=== PATIENT | female | born 1955 | race Caucasian/White ===

== ENCOUNTER 2017-01-07 20:51 | Emergency (ER) | payer BC ==
[2017-01-07 20:57] VITALS: BP 109/69
--- NOTE | 2017-01-19 19:37 | UC ---
Lower Extremity/Ankle HPI - HPI Summary HPI Summary: believes she stepped on a straight pin 2-3 weeks ago and the FB is still in her foot - History of Current Complaint Chief Complaint: YANIRAkin Stated Complaint: METAL IN FOOT Time Seen by Provider: 01/07/17 21:31 Hx Obtained From: Patient ?: No Onset/Duration: Sudden Onset, Lasting Weeks - 2, Still Present Severity Initially: Moderate Severity Currently: Moderate Pain Intensity: 8 Pain Scale Used: 0-10 Numeric Aggravating Factor(s): Standing, Ambulation Alleviating Factor(s): Rest, Elevation Able to Bear Weight: Yes - Allergies/Home Medications Allergies/Adverse Reactions: Allergies Allergy/AdvReac Type Severity Reaction Status Date / Time No Known Allergies Allergy Verified 01/07/17 21:10 Home Medications: Home Medications Amlodipine Besylate [Norvasc 5 mg tab] 5 mg PO DAILY 01/07/17 [History Confirmed 01/07/17] Amoxicillin/Clavulanate TAB* [Augmentin TAB 875*] 875 mg PO BID 01/07/17 [ History Confirmed 01/07/17] FLUoxetine CAP* [PROzac CAP*] 60 mg PO DAILY 01/07/17 [History Confirmed ] Gabapentin CAP(*) [Neurontin 300 CAP(*)] 300 mg PO BID 01/07/17 [History Confirmed 01/07/17] Methylphenidate HCl [Concerta] 54 mg PO DAILY 01/07/17 [History Confirmed ] SUMAtriptan TAB* [Imitrex TAB*] 25 mg PO SEE INSTRUCTIONS 01/07/17 [History Confirmed 01/07/17] Valsartan/HCTZ 160/25(NF) [Diovan Hct 160/25(NF)] 1 tab PO DAILY 01/07/17 [ History Confirmed 01/07/17] PMH/Surg Hx/FS Hx/Imm Hx Previously Healthy: No Cardiovascular History: Hypertension Neurological History: Migraine Psychological History: Depression - Surgical History Surgical History: Yes Surgery Procedure, Year, and Place: 06/2007 - CSP - FUSION C5-6, C 6-7. 09/13 - SURGICALLY OPENED FOR PLANNED LUMBAR SURG BUT NEVER DONE BECAUSE PT HAD HEART COMPLICATIONS. 1972- [facility]. 1961- TONSILECTOMY - Family History Known Family History: Positive: None Family History: no reported cardio vascular issues in family lineage - Social History Occupation: Retired Lives: With Family Alcohol Use: Rare Substance Use Type: None Smoking Status (MU): Never Smoked Tobacco Review of Systems Constitutional: Negative Skin: Negative Eyes: Negative ENT: Negative Respiratory: Negative Cardiovascular: Negative Gastrointestinal: Negative Genitourinary: Negative Motor: Negative Neurovascular: Negative Musculoskeletal: Arthralgia - Pain in left great toe Neurological: Negative Psychological: Negative All Other Systems Reviewed And Are Negative: Yes Physical Exam Triage Information Reviewed: Yes Appearance: Well-Appearing, No Pain Distress, Well-Nourished Vital Signs: Initial Vital Signs Temp 97.6 F 01/07/17 20:53 Pulse 75 01/07/17 20:53 Resp 18 01/07/17 20:53 BP 109/69 01/07/17 20:53 Pulse Ox 100 01/07/17 20:53 Vital Signs Reviewed: Yes Eye Exam: Normal Eyes: Positive: Conjunctiva Clear ENT Exam: Normal ENT: Positive: Normal ENT inspection, Hearing grossly normal. Negative: Nasal congestion, Nasal drainage, Trismus, Muffled/hoarse voice Dental Exam: Normal Neck exam: Normal Neck: Positive: Supple, Nontender Respiratory Exam: Normal Respiratory: Positive: Chest non-tender, No respiratory distress, No accessory muscle use Cardiovascular Exam: Normal Cardiovascular: Positive: RRR, Pulses Normal, Brisk Capillary Refill Musculoskeletal Exam: Normal Musculoskeletal: Positive: Strength Intact, ROM Intact, No Edema Neurological Exam: Normal Neurological: Positive: Alert, Muscle Tone Normal Psychological Exam: Normal Skin Exam: Normal Diagnostics - Radiology No standard instances Xray Interpretation: Positive (See Comments) Radiology Interpretation Completed By: Radiologist - 2 cm FB in left great toe Lower Extremity Course/Dx - Course Course Of Treatment: Post op shoe crutches, augmentin, ibuprofen follow with ortho in the am - Differential Dx/Diagnosis Differential Diagnosis/HQI/PQRI: Cellulitis, Contusion, Fracture (Closed), Infection, Osteomyelitis, Sprain, Strain, Tenosynovitis - FB Provider Diagnoses: Retained FB in left great toe, HTN by history well controlled Discharge - Discharge Plan Condition: Stable Disposition: HOME Patient Education Materials: Soft Tissue Foreign Body (ED) Referrals: Salena Walsh MD [Medical Doctor] - 1 Day Additional Instructions: Call Dr. Walsh in the morning (she is in the same orthopedic practice as Dr. Siegel) Let them know we referred you for an appointment on Sunday for evaluation of a 2 cm foreign body in your great toe
== END 2017-01-07 22:07 | disposition home or self-care (01) ==
LOC: UCEAST 20:51
DX: S91.142A Puncture wound with foreign body of left great toe without damage to nail, initial encounter (principal); W45.8XXA Other foreign body or object entering through skin, initial encounter; Y93.9 Activity, unspecified; Y92.9 Unspecified place or not applicable; I10 Essential (primary) hypertension; G43.909 Migraine, unspecified, not intractable, without status migrainosus; F32.9 Major depressive disorder, single episode, unspecified
CPT/HCPCS: 99213; G0463

== ENCOUNTER 2017-01-29 09:46 | Day surgery (SDC) | payer BC ==
[~2017-01-29 09:46] MED LIST: Buffered Lidocaine 0.9% SYRIN* 5 ML/SYR SYRINGE INTRADERM ONE; Buffered Lidocaine 0.9% SYRIN* 5 ML/SYR SYRINGE ONE; Famotidine IV* 10 MG/ML 2 ML (20 mg) IV ONE; Famotidine IV* 10 MG/ML 2 ML (20 mg) ONE; ceFAZolin 2 GM PREMIX(*) 2 GM/50 ML BAG IVPB ONE
[2017-01-29] MEDS ORDERED: oxyCODONE TAB* 5 MG TAB PO PRN (10:17)
[2017-01-29] MEDS ORDERED: DiMENhydriNATE IV* 50 MG/ML VIAL IV PUSH PRN (10:17)
[2017-01-29] MEDS ORDERED: Acetaminophen TAB* 325 MG PO PRN (10:17)
[2017-01-29] MEDS ORDERED: Lidocaine 2% PF* 10 ML AMP ONE (10:22)
[2017-01-29] MEDS ORDERED: Bupivacaine 0.5% SDV PF* 30 ML VIAL ONE (10:22)
[2017-01-29] MEDS ORDERED: Midazolam* 1 MG/ML 5 ML VIAL (5 MG) ONE (10:24)
[2017-01-29] MEDS ORDERED: fentaNYL* 50 MCG/ML 2 ML VIAL (100 MCG VIAL) ONE (10:24)
[2017-01-29] MEDS ORDERED: Lidocaine 2% PF * 5 ML VIAL ONE (10:25)
[2017-01-29] MEDS ORDERED: Ondansetron INJ* 2 MG/ML VIAL ONE (10:25)
[2017-01-29] MEDS ORDERED: Dexamethasone IV* 4 MG/ML 1 ML (4 MG) ONE (10:25)
[2017-01-29] MEDS ORDERED: Ketorolac INJ* 30 MG/ML 1 ML VIAL ONE (10:25)
[2017-01-29] MEDS ORDERED: Propofol* 10 MG/ML 20 ML BTL IV PUSH ONE (10:25)
[2017-01-29 12:01] VITALS: BP 118/69
--- NOTE | 2017-01-29 21:01 | RAD ---
Indication: Puncture wound with sewing needle foreign body at the LEFT great toe. Comparison: January 05, 2017 radiographs Technique: Less than one hour fluoroscopy. Report: Spot image documents absence of the previous needle foreign body at the level of the proximal metaphysis of the proximal phalanx. IMPRESSION: Procedural fluoroscopy. CPT II Codes: 6045F
--- NOTE | 2017-01-30 16:05 | OP ---
DATE OF OPERATION: 01/29/17 - [facility] DATE OF : 51 SURGEON: Bernard Siegel MD HEAD OF DESIGN: None. ANESTHESIOLOGIST: Kayla Snyder MD ANESTHESIA: Monitored anesthesia care. PRE-OP DIAGNOSIS: Retained sewing needle, left great toe. POST-OP DIAGNOSIS: Retained sewing needle, left great toe. OPERATIVE PROCEDURE: Removal of foreign body, left great toe DESCRIPTION OF PROCEDURE: The patient was taken to the operating room where C- arm was used to identify the medial aspect of this retained sewing needle. A 1- cm incision was made at this level and then the sewing needle removed with a hemostat. We irrigated the wound thoroughly, closing with 2 interrupted nylon sutures and a compression dressing applied. [id number]/[facility] #: [id number] [facility]
== END 2017-01-29 13:15 | disposition home or self-care (01) ==
LOC: OR 09:46
PROVIDERS: ATTEND Orthopaedic Surgery
DX: S90.452A Superficial foreign body, left great toe, initial encounter (principal); W45.8XXA Other foreign body or object entering through skin, initial encounter; Y92.9 Unspecified place or not applicable; I10 Essential (primary) hypertension; G43.909 Migraine, unspecified, not intractable, without status migrainosus; F32.9 Major depressive disorder, single episode, unspecified; F41.9 Anxiety disorder, unspecified
CPT/HCPCS: 76000; 88300; J0690; J1100; J1885; J2001; J2250; J2405; J2704; J3010